=== PATIENT | male | born 1950 | race Caucasian/White ===

== ENCOUNTER 2018-07-25 07:30 | Inpatient (IN) ==
--- NOTE | 2018-07-25 08:18 | Diag Imaging Result Doc PS360 ---
EXAM: CHEST-PORTABLE - 07/25/2018 HISTORY: sepsis TECHNIQUE: Portable chest COMPARISON: 08/03/2016 FINDINGS: Heart size is normal. There are sternal wires from previous surgery again seen. There is tortuosity of the thoracic aorta similar to prior. There is scarring at the left lower lung similar to prior. There is no acute consolidation, pleural effusion, or pneumothorax identified. IMPRESSION: Left lower lung scarring similar to prior. No acute changes. Electronically signed by Mariano Silverio 07/25/2018 8:15 AM
[2018-07-25 08:59] LABS: BASO# 0.01 X1000 (0.0-0.2); BASO% 0.1 % (0.0-0.8); EOS# 0.01 X1000 (0.0-0.7); EOS% 0.1 % (0.0-10.0); HEMATOCRIT 42.5 % (42.0-52.0); HEMOGLOBIN 14.2 g/dL (14.0-18.0); IMM GRAN# 0.06 X1000 (0.0-0.04); IMM GRAN% 0.4 % (0.0-0.5); LYMPH# 0.84 X1000 (1.2-3.4); LYMPH% 6.2 % (20.5-51.1); MCH 32.1 PG (27-31); MCHC 33.4 g/dL (33-37); MCV 96.2 FL (81-99); MONO# 1.06 X1000 (0.11-0.59); MONO% 7.9 % (1.7-9.3); MPV 12.2 FL (7.4-10.4); NEUT# 11.48 X1000 (1.4-6.5); NEUT% 85.3 % (42.2-75.2); PLT 227 X1000 (130-400); RBC 4.42 XMIL (4.7-6.1); WBC 13.46 X1000 (4.8-10.8)
[2018-07-25 09:16] LABS: ESTIMATED GFR > 60
[2018-07-25 09:19] LABS: AGAP 21; ALBUMIN 3.1 g/dL (3.5-5.0); ALKALINE PHOSPHATASE 90 U/L (32-122); BUN 24 mg/dL (8-22); CALCIUM 9.5 mg/dL (8.8-10.2); CHLORIDE 87 mmol/L (98-107); CK PROFILE 235 U/L (24-204); COSMO 278; GLUCOSE 344 mg/dL (70-104); GOT 23 U/L (10-34); GPT 27 U/L (10-44); POTASSIUM 4.2 mmol/L (3.5-5.1); SODIUM 130 mmol/L (136-145); TCO2 22 mmol/L (25-35); TOTAL PROTEIN 6.9 g/dL (6.3-8.3)
[2018-07-25 09:31] LABS: BILIRUBIN URINE NEGATIVE (NEGATIVE); BLOOD URINE 3+ (NEGATIVE); CLARITY CLEAR (CLEAR); COLOR YELLOW; KETONE URINE 3+(Large) mg/dL (NEGATIVE); LEUKOCYTES URINE TRACE (NEGATIVE); NITRITE URINE NEGATIVE (NEGATIVE); PH URINE 6.5; PROTEIN URINE 1+(30 mg/dL) mg/dL (NEGATIVE); UROBILINOGEN URINE NORMAL
[2018-07-25 09:40] LABS: INR 0.94
[2018-07-25 09:41] LABS: PTT 26.9 Seconds (22.3-41.8)
[2018-07-25 09:52] LABS: URINE BACTERIA 2+ /HFP; URINE CAST GRANULAR PRESENT /LPF; URINE EPITHELIAL CELLS <10 /HPF (<10); URINE RBC <10 /HPF (<10); URINE SOURCE CLEAN CATCH
[2018-07-25 09:56] LABS: CK INDEX 2.3 (0.0-2.5); CK-MB 5.38 ng/mL (0.0-5.0)
[2018-07-25 10:16] LABS: LYMPHS 7 % (21-51); MONO 6 % (1-9); SEGS 87 % (42-75)
[2018-07-25 10:40] LABS: HEMOGLOBIN A1C 14.7 % (4.8-6.0)
--- NOTE | 2018-07-25 11:14 | HISTORY AND PHYSICAL ---
PRIMARY CARE PHYSICIAN: None. CHIEF COMPLAINT: Frequent falls due to pain in legs, has had 3 falls in 2 days and a neighbor came to check on him and found him in the floor and called 911. HISTORY OF PRESENTING ILLNESS: This is a 67-year-old male who presents to [facility] ER via EMS after he was found in the floor by his neighbor who then called 911. Patient states that he laid in the floor approximately 5 hours. He has had 3 falls in the past 2 days. States that the pain in his legs keeps him from being able to walk and then he just falls. His workup showed a heart rate on arrival of 139, blood pressure was 113/66. He was saturating 97% on room air. He was disheveled on arrival. He had some stool on the bottom of his feet and he stated he has 3 cats at home. He is noted to have erythema, edema, warmth to touch to his right lower extremity. Per ER record, they did an arterial of bilateral legs with no significant findings. His white blood cell count was 13.46. His sodium level was 130 with a chloride of 87. His cardiac enzymes are pending and an EKG is pending but he will be admitted for further evaluation and treatment. PAST MEDICAL HISTORY: Deep venous thrombosis, coronary artery disease, hypertension, hyperlipidemia, myocardial infarction, chronic obstructive pulmonary disease. PAST SURGICAL HISTORY: Coronary artery bypass graft and heart stent placement. FAMILY HISTORY: Reviewed and noncontributory. SOCIAL HISTORY: He currently lives alone. Drinks alcohol occasionally of 2 drinks. He smokes a pack of cigarettes a day and denies any illicit drug use. ALLERGIES: He has no known drug allergies. HOME MEDICATIONS: A current list will need to be obtained, reviewed and we will restart as appropriate. We will place an order for nursing to update and confirm home medications. LABORATORY DATA: White blood cell count of 13.46, hemoglobin 14.2, hematocrit 42.5, platelets 227,000. PT 13, INR 0.94. Sodium of 130, potassium 4.2, chloride 87, CO2 22, BUN of 24 with a creatinine of 1, glucose 344. Cardiac enzyme is pending but his troponin was negative at 0.010. Plasma lactate of 1.7. Urinalysis with 3+ ketones, 3+ blood, trace of white blood cells, 2+ bacteria. Urine culture is pending. Chest x-ray showed left lower lung scarring similar to prior with no acute changes. Bilateral arterial Doppler per the ER physician verbal report showed no acute findings. REVIEW OF SYSTEMS: He denied any fever, chills, blurred vision, dizziness, chest pain, coughing, shortness of breath. He denied any abdominal pain, constipation, diarrhea, burning or hurting with urination. He was positive for pain to bilateral lower extremities with ambulation and states that is why he has had multiple falls, due to the pain in his legs. PHYSICAL EXAMINATION: VITAL SIGNS: On arrival he had a temperature of 98 degrees, pulse 139, respirations 20, blood pressure 113/66, saturating 97% on room air. GENERAL: This is a 67-year-old male who appears unkept, disheveled, poor hygiene. He is alert and oriented and answers questions appropriately. HEENT: Normocephalic, atraumatic. Normal ENT inspection. Oropharynx and nares are clear. Eyes: Pupils are unequal. He has what appears to be a cataract on his right eye. Extraocular movements are intact NECK: Normal inspection, normal range of motion. LUNGS: Clear to auscultation bilaterally with equal lung expansion and chest wall movement. HEART: With regular rate and rhythm. No murmurs, rubs, or gallops. ABDOMEN: Soft, nontender, nondistended. Bowel sounds are present x4 quadrants. MUSCULOSKELETAL: He has 5/5 strength to upper extremities, 3/5 strength to lower extremities. He is noted to have to his right lower extremity erythema, edema, warmth to touch. Some weeping noted around his ankle area of fluid. NEUROLOGICAL: The cranial nerves 2 through 12 appear grossly intact. ASSESSMENT: 1. Multiple falls. 2. Right lower extremity cellulitis. 3. Leukocytosis. 4. Mild hyponatremia. 5. Hyperglycemia. We are going to check a hemoglobin A1c to determine if he has diabetes or if this is a single episode of hyperglycemia. 6. Possible urinary tract infection. We will await urine culture. PLAN: He is being admitted to the medical unit at [facility], placed on telemetry O2 per protocol, healthy heart diet. We need to update and confirm home medications and then will review them and restart as appropriate. Blood cultures and urine cultures are pending. He is on serial plasma lactate for sepsis protocol. We are obtaining an EKG on his telemetry. It appears he is in sinus tach and we are going to place on clindamycin 600 mg IV q.8 h., normal saline at 125 mL an hour. Again, we are going to check a hemoglobin A1c to verify if he is diabetic and recheck a CBC, BMP in the a.m. He is going to need physical therapy, but we need to treat his cellulitis first. He also is going to need social work nurse for discharge planning. Further orders after being seen by attending. Dictated by NIMO Mai for Boris Nunez MD cc: NIMO Mai MD
[2018-07-25] MEDS ORDERED: TYLENOL PO PRN (12:46)
[2018-07-25] MEDS ORDERED: NS 1,000 ML IV SCH ×2 (12:46→21:00)
[2018-07-25] MEDS ORDERED: ZOFRAN IV PRN (12:46)
[2018-07-25] MEDS: CLINDAMYCIN 600 MG/D5W 600 MG/50 ML IVPB IV SCH ×2 (13:17→21:55)
[2018-07-25] MEDS ORDERED: DUONEB (A & A) INH PRN (20:43)
[2018-07-25] MEDS: HUMULIN R (PARKWAY) SUBQ SCH (21:54)
[2018-07-25] MEDS: BASAGLAR SUBQ SCH (21:54)
[2018-07-25] MEDS: ZEBETA PO SCH (21:55)
[2018-07-26] MEDS: CLINDAMYCIN 600 MG/D5W 600 MG/50 ML IVPB IV SCH ×3 (04:34→21:45)
--- NOTE | 2018-07-26 05:10 | HISTORY AND PHYSICAL ---
HISTORY AND PHYSICAL ADDENDUM: The patient seen and examined by me [id number]. All the laboratory, vital signs, and images were reviewed. Chest x-ray showed left lower lung scarring, with no changes, and basically similar to prior studies. He has been tachycardic, but I believe he did not use his bisoprolol that he uses every day, so I put him back on that. I will decrease a little bit the IV fluids from 125 to 75, because this patient has an ejection fraction of 42%. That ejection fraction was demonstrated in a stress test done in 2016. I do not know how much is the ejection fraction at this time. Probably tomorrow we can stop the fluids. Blood sugar is elevated, and the hemoglobin A1c is extremely high. I have placed this patient on insulin glargine 20 units during the night, but probably we will need more than that. I will continue pattern of blood sugar and sliding scale insulin. This patient has been admitted because of lower extremity cellulitis. He has multiple scratch lesions. He has been placed on antibiotics, clindamycin. Will continue with that treatment for now. As per the patient, he has been taking prednisone for 5 months, every single day, so I will continue with that. Also, we will continue with his bisoprolol, breathing treatment, prasugrel, and aspirin, p.r.n. breathing treatment. This patient has a past medical history of COPD, coronary artery disease with CABG, blood clots, hyperlipidemia, hypertension. I agree with the rest of the assessment and plan. I agree with the rest of the nurse practitioner's assessment and plan. cc: Boris Nunez MD
[2018-07-26] MEDS: HUMULIN R (PARKWAY) SUBQ SCH ×4 (06:35→22:10)
[2018-07-26 08:09] LABS: BASO# 0.01 X1000 (0.0-0.2); BASO% 0.1 % (0.0-0.8); EOS# 0.08 X1000 (0.0-0.7); HEMATOCRIT 35.5 % (42.0-52.0); HEMOGLOBIN 11.6 g/dL (14.0-18.0); IMM GRAN# 0.03 X1000 (0.0-0.04); IMM GRAN% 0.4 % (0.0-0.5); LYMPH# 1.27 X1000 (1.2-3.4); LYMPH% 16.2 % (20.5-51.1); MCH 31.7 PG (27-31); MCHC 32.7 g/dL (33-37); MONO# 0.83 X1000 (0.11-0.59); MONO% 10.6 % (1.7-9.3); MPV 12.1 FL (7.4-10.4); NEUT# 5.61 X1000 (1.4-6.5); NEUT% 71.7 % (42.2-75.2); PLT 186 X1000 (130-400); RBC 3.66 XMIL (4.7-6.1); RDW 13.1 % (11.5-14.5); WBC 7.83 X1000 (4.8-10.8)
[2018-07-26 08:28] LABS: AGAP 12; BUN 17 mg/dL (8-22); CALCIUM 8.4 mg/dL (8.8-10.2); CHLORIDE 96 mmol/L (98-107); COSMO 271; CREATININE 0.7 mg/dL (0.7-1.2); ESTIMATED GFR > 60; GLUCOSE 128 mg/dL (70-104); POTASSIUM 3.7 mmol/L (3.5-5.1); SODIUM 134 mmol/L (136-145); TCO2 26 mmol/L (25-35)
[2018-07-26] MEDS: BREO ELLIPTA 200/25 MCG INH INH SCH (08:36)
[2018-07-26] MEDS: ASPIRIN PO SCH (10:02)
[2018-07-26] MEDS: THERA M PLUS PO SCH (10:03)
[2018-07-26] MEDS: EFFIENT PO SCH (10:03)
[2018-07-26] MEDS: PREDNISONE PO SCH (10:03)
--- NOTE | 2018-07-26 14:22 | PROGRESS NOTE ---
DATE: 07/26/2018 SUBJECTIVE: This patient is feeling better compared with yesterday, he still has severe redness bilaterally but the swelling is going down, I will continue with the same management because I believe is working, kidney function is stabilized. Hemoglobin A1c 14.7 and blood glucose is better compared with yesterday. For now will continue with the same management and I will adjust the medications accordingly. WBC improved. OBJECTIVE: Vital Signs: Temperature 98.2 degrees, pulse 84, respiratory 16, blood pressure 95/53, oxygen saturation 98 on room air. HEENT: Head normocephalic, no trauma. PERRLA. Neck: Supple. No JVD. No masses. Central trachea. Chest: Clear to auscultation. No wheezing. No rales. Abdomen: Soft, nontender, nondistended. No hepatosplenomegaly. Extremities: 3+ lower extremity edema bilaterally with bilateral lower extremity redness, scratch lesions as well. Neurological: The patient is alert and oriented x3. No focal deficits. LABORATORY: WBC 7.8, hemoglobin 11.6, hematocrit 35.5, platelets 186,000, sodium 134, potassium 3.7, chloride 96, bicarbonate 26, BUN 17, creatinine 0.7, glucose 128, calcium 8.4. ASSESSMENT AND PLAN: 1. Bilateral lower extremity cellulitis mostly on the right side, will continue with antibiotics. It looks like he is getting better, is less swollen but still is really red, will continue with the same treatment. 2. Multiple falls probably secondary to lower extremity swelling and possible peripheral neuropathy. His hemoglobin A1c is 14.7 but he has been 5 months using steroids, as per the patient he has been using 20 mg of prednisone daily and I have decreased that dose to 10. 3. Leukocytosis resolved. 4. Mild hyponatremia better. 5. Hyperglycemia. Hemoglobin A1c 14.7 so probably this patient has diabetes but he has been getting steroids for the past 5 months due to his chronic obstructive pulmonary disease, I have started this patient on long-acting insulin and his blood sugar seems to be better, I will continue with the same management and I will monitor this patient closely. 6. Possible urinary tract infection, we will wait for the urine culture. He is on antibiotics as well. 7. Chronic obstructive pulmonary disease not in exacerbation. Continue with the same management and breathing treatment, p.r.n. breathing treatment as needed as well. 8. History of coronary artery disease status post coronary artery bypass graft, aware. No chest pain at this moment. 9. Hypertension stable. Continue with same management. 10. Hyperlipidemia. Continue with pravastatin. 11. Mild constipation. Continue with MiraLAX. cc: Boris Nunez MD
[2018-07-26] MEDS ORDERED: PRAVACHOL PO SCH (21:00)
[2018-07-26] MEDS: ZEBETA PO SCH (21:50)
[2018-07-26] MEDS: BASAGLAR SUBQ SCH (22:10)
[2018-07-27] MEDS: CLINDAMYCIN 600 MG/D5W 600 MG/50 ML IVPB IV SCH (04:41)
[2018-07-27 06:35] LABS: BASO# 0.01 X1000 (0.0-0.2); BASO% 0.2 % (0.0-0.8); EOS# 0.05 X1000 (0.0-0.7); EOS% 0.8 % (0.0-10.0); HEMATOCRIT 34.3 % (42.0-52.0); IMM GRAN# 0.06 X1000 (0.0-0.04); IMM GRAN% 0.9 % (0.0-0.5); LYMPH% 20.3 % (20.5-51.1); MCH 31.2 PG (27-31); MCHC 32.1 g/dL (33-37); MCV 97.2 FL (81-99); MONO# 0.71 X1000 (0.11-0.59); MONO% 11.1 % (1.7-9.3); MPV 11.9 FL (7.4-10.4); NEUT# 4.28 X1000 (1.4-6.5); NEUT% 66.7 % (42.2-75.2); PLT 217 X1000 (130-400); RBC 3.53 XMIL (4.7-6.1); RDW 12.9 % (11.5-14.5); WBC 6.41 X1000 (4.8-10.8)
[2018-07-27] MEDS: HUMULIN R (PARKWAY) SUBQ SCH ×4 (06:41→20:39)
[2018-07-27 06:50] LABS: AGAP 10; ALBUMIN 2.5 g/dL (3.5-5.0); ALKALINE PHOSPHATASE 72 U/L (32-122); BUN 19 mg/dL (8-22); CALCIUM 8.5 mg/dL (8.8-10.2); CHLORIDE 97 mmol/L (98-107); COSMO 276; CREATININE 0.7 mg/dL (0.7-1.2); ESTIMATED GFR > 60; GLUCOSE 239 mg/dL (70-104); GOT 22 U/L (10-34); GPT 30 U/L (10-44); POTASSIUM 3.9 mmol/L (3.5-5.1); SODIUM 133 mmol/L (136-145); TCO2 26 mmol/L (25-35); TOTAL PROTEIN 5.3 g/dL (6.3-8.3)
[2018-07-27] MEDS: BREO ELLIPTA 200/25 MCG INH INH SCH (07:44)
[2018-07-27] MEDS: LEVAQUIN 750 MG/D5W 750 MG/150 ML IVPB IV SCH (10:08)
[2018-07-27] MEDS: MIRALAX PO SCH (10:09)
[2018-07-27] MEDS: ASPIRIN PO SCH (10:09)
[2018-07-27] MEDS: EFFIENT PO SCH (10:09)
[2018-07-27] MEDS: PREDNISONE PO SCH (10:09)
[2018-07-27] MEDS: THERA M PLUS PO SCH (10:09)
[2018-07-27] MEDS ORDERED: NS 500 ML IV ONE (12:20)
[2018-07-27] MEDS ORDERED: VANCOMYCIN IV PER PHARMACY MISC SCH (12:30)
--- NOTE | 2018-07-27 12:56 | PROGRESS NOTE ---
DATE: 07/27/2018 SUBJECTIVE: The patient has no complaints. He is very complimentary of the staff and everyone about him. He feels like he is being treated like a [place]. He enjoys the food and being taking care of. The diagnosis of diabetes is new to him. I definitely think it was accelerated by the prednisone, but I do not think it is only dependent on the prednisone. I think he does have type 2 diabetes. In any case, he seems pretty well. OBJECTIVE: Vital signs: His blood pressure is 105/62, heart rate of 81, respiratory rate 18, temperature 97.4 degrees, 97% on room air. Cardiovascular: Regular rate and rhythm. Pulmonary: Bilateral breath sounds. Clear to auscultation. GI: Soft, nontender, nondistended. Bowel sounds are positive. LABORATORY: Sodium is 133, glucose is 325. He kind of hovers since yesterday at 414, 256, 325. PROBLEM LIST: 1. Lower extremity cellulitis. He is on antibiotics in the form of Levaquin. I think he may need some staph coverage. Kidney function is intact. So I am going to just give him some vancomycin. 1. New onset diabetes. He is on Lantus, but I am going to add metformin. It may take a while to get this under good control. 2. Chronic obstructive pulmonary disease. I think that appears to be pretty well. He is at baseline and continue his breathing treatments. He is on low-dose steroids. 3. Coronary artery disease appears to be compensated. He is on bisoprolol, Effient and Pravachol, which I am going to switch him to Lipitor. I do not feel like Pravachol is sufficient enough. We will check his lipids, but since he has CAD, we really need to keep an eye on that. DISPOSITION: I think he is probably close to going home. However, he has not been out of bed, so we need to work on getting him up and about. I think he needs a dietitian consult, some diabetes education. He is going to go home on insulin. We also need to educate him on injections and checking his sugars. So, hopefully home in the next 24 hours if he is stable. cc: Yohannes Mills MD
[2018-07-27] MEDS ORDERED: VANCOMYCIN 2,000 MG in NS 500 ML IV ONE (14:00)
[2018-07-27] MEDS: GLUCOPHAGE PO SCH (16:23)
--- NOTE | 2018-07-27 19:47 | ECHO REPORT ---
ORDER DATE: 07/25/2018 ECHOCARDIOGRAM: INDICATION: CHF. FINDINGS: 1. The right atrium appears normal in size. 2. Mild tricuspid regurgitation. Insufficient data to estimate RV systolic pressure. 3. Normal RV size and systolic function. 4. Trace pulmonic insufficiency. 5. Normal left atrial size. 6. No mitral valve prolapse. Mild mitral regurgitation. 7. The left ventricle is upper limits of normal size at 5.6 cm. Normal wall thicknesses with a posterior and interventricular septal wall thickness of 1.0 cm each. There is a reduced ejection fraction estimated at 40% with global hypokinesis. This is a somewhat difficult study. The patient was noted to have an ejection fraction of 42% on nuclear scanning in 2016. 8. Aortic valve opens well, although it does appear sclerotic. It does not appear stenotic. There is no insufficiency. 9. Aorta appears normal in visualized segments. 10. No pericardial effusion seen. cc: MD Boris Christine MD
[2018-07-27] MEDS ORDERED: INSULIN PEN NEEDLES ONE (20:39)
[2018-07-27] MEDS: BASAGLAR SUBQ SCH (20:39)
[2018-07-27] MEDS: ZEBETA PO SCH (20:40)
[2018-07-27] MEDS ORDERED: LIPITOR PO SCH (21:00)
[2018-07-28] MEDS ORDERED: VANCOMYCIN 1,500 MG in NS 250 ML IV SCH (04:00)
[2018-07-28] MEDS: HUMULIN R (PARKWAY) SUBQ SCH ×2 (06:04→12:22)
[2018-07-28 07:53] LABS: AGAP 8; BUN 16 mg/dL (8-22); CALCIUM 8.7 mg/dL (8.8-10.2); CHLORIDE 103 mmol/L (98-107); COSMO 278; CREATININE 0.6 mg/dL (0.7-1.2); ESTIMATED GFR > 60; GLUCOSE 178 mg/dL (70-104); POTASSIUM 3.9 mmol/L (3.5-5.1); SODIUM 136 mmol/L (136-145); TCO2 25 mmol/L (25-35)
[2018-07-28 08:04] LABS: BASO# 0.03 X1000 (0.0-0.2); BASO% 0.5 % (0.0-0.8); EOS# 0.06 X1000 (0.0-0.7); EOS% 0.9 % (0.0-10.0); HEMATOCRIT 33.3 % (42.0-52.0); HEMOGLOBIN 10.7 g/dL (14.0-18.0); IMM GRAN# 0.13 X1000 (0.0-0.04); LYMPH# 1.61 X1000 (1.2-3.4); LYMPH% 24.9 % (20.5-51.1); MCH 31.5 PG (27-31); MCHC 32.1 g/dL (33-37); MCV 97.9 FL (81-99); MONO# 0.67 X1000 (0.11-0.59); MONO% 10.4 % (1.7-9.3); MPV 11.6 FL (7.4-10.4); NEUT# 3.96 X1000 (1.4-6.5); NEUT% 61.3 % (42.2-75.2); PLT 240 X1000 (130-400); RDW 12.9 % (11.5-14.5); WBC 6.46 X1000 (4.8-10.8)
[2018-07-28] MEDS: BREO ELLIPTA 200/25 MCG INH INH SCH (08:05)
[2018-07-28 10:12] LABS: ANISOCYTOSIS 1+; EOS 1 % (1-10); LYMPHS 19 % (21-51); MONO 12 % (1-9); SEGS 68 % (42-75)
[2018-07-28] MEDS: LEVAQUIN 750 MG/D5W 750 MG/150 ML IVPB IV SCH (10:14)
[2018-07-28] MEDS: PREDNISONE PO SCH (10:18)
[2018-07-28] MEDS: ASPIRIN PO SCH (10:18)
[2018-07-28] MEDS: PRINIVIL PO SCH ×2 (10:18→10:20)
[2018-07-28] MEDS: THERA M PLUS PO SCH (10:18)
[2018-07-28] MEDS: MIRALAX PO SCH (10:18)
[2018-07-28] MEDS: GLUCOPHAGE PO SCH (10:19)
[2018-07-28] MEDS: EFFIENT PO SCH (10:19)
[2018-07-28 12:23] VITALS: BP 99/60
--- NOTE | 2018-07-28 13:50 | EKG Report ---
Test Performed on : 07/25/2018 11:11:43 AM Test Reason : tachycardia Blood Pressure : / mmHG Vent. Rate : 124 BPM Atrial Rate : 124 BPM P-R Int : 134 ms QRS Dur : 092 ms QT Int : 326 ms P-R-T Axes : 055 071 182 degrees QTc Int : 468 ms Sinus tachycardia. Possible Left atrial enlargement ST elevation, consider inferior injury or acute infarct ACUTE WI / STEMI Consider right ventricular involvement in acute inferior infarct Abnormal ECG When compared with ECG of 25-JUL-2018 11:09, (Unconfirmed) premature ventricular complexes. are no longer present ST more elevated in Inferior leads Unconfirmed Result
--- NOTE | 2018-07-29 04:44 | DISCHARGE SUMMARY ---
ADMISSION DATE: 07/25/2018 DISCHARGE DATE: 07/28/2018 DISCHARGE DIAGNOSES: 1. Bilateral lower extremity cellulitis. 2. Multiple falls. 3. Leukocytosis secondary to #1. 4. Type 2 diabetes mellitus. 5. Chronic obstructive pulmonary disease. 6. Coronary artery disease. 7. Dyslipidemia. HOSPITAL COURSE: Mr. Pleitez is a 67-year-old, gentleman who presented to the [facility] emergency department via the EMS after he was found on the floor by his neighbor who called 911. According to the patient, he was lying there on the floor for approximately 5 hours prior to the arrival of EMS. He reported multiple falls to the previous days. He was found to have bilateral leg cellulitis and, therefore, he was treated with IV antibiotics including vancomycin and levofloxacin. His wound culture grew Serratia species that is sensitive to levofloxacin. He received regular insulin as per protocol for his diabetes and was continued on his routine home medications for coronary artery disease, COPD, and dyslipidemia. His condition has improved and therefore, we are going to let him go home today. DISCHARGE MEDICATIONS: 1. Levofloxacin 500 mg orally once daily for 10 days. 2. Aspirin 81 mg orally once daily. 3. Effient 10 mg orally once daily. 4. Pravastatin 80 mg orally once daily at bedtime. 5. Bisoprolol 5 mg orally once daily at bedtime. 6. Lisinopril 5 mg orally once daily. 7. Albuterol and Atrovent nebulization treatments as needed. 8. Ventolin HFA 2 puffs q.4 hours as needed for shortness of breath and wheezing. 9. Metformin 500 mg orally twice daily. 10. Breo Ellipta inhaler 200/25 one inhalation once daily. 11. Prednisone 10 mg orally once daily. 12. MiraLAX 17 g orally once daily. FOLLOWUP: He will follow up with his PCP in approximately 1 week. CONDITION: Stable DISPOSITION: Home. cc: Camilla Garcia MD
--- NOTE | 2018-07-31 11:36 | VASCULAR LAB ---
PROCEDURE NAME: Arterial Bilateral Legs - 07/25/2018 REFERRING PHYSICIAN: Dr. Ramon Parr. MEDIA INTERN: OSVALDO. INDICATIONS: The patient has had coronary artery bypass grafting, high blood pressure, smoker. She has lower extremity ulcers and gupta loss of pulse on the left. Pulse waveform recordings were done only on the right leg due to a history of a DVT and a current open wound involving the lower calf and ankle, on the right. The left leg is the one with coldness and is the concerned leg. FINDINGS: This is a very limited lower extremity arterial study. She had pulse waveforms involving the right thigh and the right calf which appeared to be diminished but they were present. On the left, her brachial artery blood pressure was 126 mmHg. Left thigh was 155 mmHg. Left calf was 135 mmHg left ankle is 121 mmHg. Again, the pulse waveforms were diminished involving her left calf and left ankle. They were barely visible involving her left toe; however, at rest, the ankle-brachial index was 0.96. INTERPRETATION: She does have bilateral lower extremity peripheral vascular disease with decreased waveforms. No pressures were taken on the right lower extremity. Pressure is on the left lower extremity are assumed to be falsely elevated because of noncompliant arteries in the left lower extremity. Because of the pulse waveforms, left lower extremity is diminished. cc: MD Ramon Diaz MD
--- NOTE | 2018-08-01 10:04 | PROVIDER DOCUMENTATION ---
This chart was entered by Latisha Sndyer Scribe, acting as scribe for Ramon Parr MD. HPI-General Adult - General Chief Complaint: Fall Stated Complaint: FALL Time Seen by Provider: 07/25/18 08:02 Source: patient, EMS Allergies/Adverse Reactions: Patient Allergies Allergy/AdvReac Type Severity Reaction Status Date / Time No Known Allergies Allergy Verified 08/03/16 06:07 Home Medications: Home Medication List Medication Instructions Recorded Confirmed Last Taken Type Aspirin 0.5 tab PO DAILY 04/24/16 07/25/18 05/18/18 04:00 History Bisoprolol [Zebeta] 5 mg PO HS 04/24/16 07/25/18 05/18/18 04:00 History Lisinopril 5 mg PO DAILY 04/24/16 07/25/18 05/18/18 04:00 History Multivitamins/Minerals [Centrum 1 tab PO DAILY 04/24/16 07/25/18 05/18/18 04:00 History Tablet] Pravastatin Sodium 80 mg PO HS 04/24/16 07/25/18 05/18/18 04:00 History Albuterol 2.5MG/Ipratrop 0.5MG 3 ml INH Q6H PRN PRN #120 neb 05/14/16 07/25/18 Unknown Rx [Duoneb (A & A)] Nebulizer Accessories [Nebulizer] 1 each MC DAILY PRN #1 kit 05/14/16 07/25/18 Unknown Rx Albuterol Sulfate Inhaler 2 puff INH Q6H PRN PRN #1 inhaler 06/27/16 07/25/18 Unknown Rx [Ventolin Hfa] Prasugrel [Effient] 10 mg PO DAILY 06/27/16 07/25/18 05/18/18 04:00 History Prednisone 10 mg PO DAILY #10 tablet 08/03/16 07/25/18 05/18/18 04:00 Rx Polyethylene Glycol 3350 [Miralax] 17 gm PO DAILY #90 powd.pack 05/19/18 Unknown Rx Fluticasone/Vilant 200/25 INH 1 puff INH RTDAILY inhaler 07/28/18 Unknown Rx [Breo Ellipta 200/25 Mcg INH] Levofloxacin 500 mg PO DAILY #10 tab 07/28/18 Unknown Rx Metformin [Glucophage] 500 mg PO BID #60 tab 07/28/18 Unknown Rx - History of Present Illness -Gen Adult Nature of Presenting Problems: 67 yowm presents to the ed with c/o BLE pain weakness and unable to walk due to pain. pt has cellulites to BLE and lives alone. pt sts he falls frequently due to pain in legs. pt is unkempt in appearance and has what appears to be fecal matter on bottom of feet. pt sts he has 3 cats at home. pt denies LOC with fall and sts laid in the floor overnight till a neighbor came by and called 911. pt had urinated himself Location of Pain/Injury: reports: lower extremity Pain Radiation: reports: no radiation Quality of Pain: reports: aching, burning Severity: reports: moderate Onset/Duration: reports: other (2 weeks) Timing: reports: still present, constant Context/Activities at Onset: reports: light activity Modifying Factors: improves with: nothing. worse with: movement, palpation Associated Symptoms: reports: constipation, weakness (BLE), trouble walking. denies: back/neck pain, chest pain, cough, diarrhea, dizziness, fatigue, headaches, loss of appetite, malaise, nausea, shortness of breath, syncope, vomiting Similar Symptoms Previously?: Yes Recently seen or treated by another doctor?: No Review of Systems - Adult - REVIEW OF SYSTEMS - ADULT Constitutional: denies: chills, fever, fatique Eyes: reports: no symptoms reported Ears, Nose, Mouth & Throat: reports: no symptoms reported Cardiovascular: denies: chest pain, palpitations Respiratory: denies: cough, shortness of breath, wheezing Gastrointestinal: denies: abdominal pain, diarrhea, nausea, vomiting Genitourinary: reports: no symptoms reported Musculoskeletal: reports: see HPI, muscle weakness (BLE), other (BLE). denies: back pain, neck pain Integumentary: reports: no symptoms reported Neurological: denies: dizziness/vertigo, headache/migraines, numbness, paresthesia, seizure, slurred speech, syncope, tremors Psychiatric: reports: no symptoms reported Endocrine: reports: no symptoms reported Hematologic/Lymphatic: reports: no symptoms reported Allergic/Immunologic: reports: no symptoms reported All Other Systems: Reviewed and Negative Past History - Adult - PAST MEDICAL HISTORY-ADULT Review of Records: reports: Old Records Reviewed, Nursing Assessment Review, Medications Reviewed, Social history reviewed & non-contributory. Major Childhood Illnesses: reports: denies history Cardiovascular: reports: blood clots, CAD, HTN, hyperlipidemia, HI. denies: pacemaker, PVD Respiratory: reports: asthma, COPD Gastrointestinal: reports: denies history Genitourinary: reports: denies history Musculoskeletal: reports: denies history Neurological: reports: denies history Psychiatric: reports: denies history Endocrine/Immune: reports: denies history Other Conditions: reports: deaf/hard of hearing, skin disorder - PRIOR SURGERIES/PROCEDURES Surgical/Procedure History: reports: cardiac stent, other (bypass) - IMMUNIZATION STATUS Childhood Immunizations: See Nurse Assessment Flu Vaccine: See Nurse Assessment - FAMILY HISTORY Family History: reviewed, not pertinent - SOCIAL HISTORY Smoking: cigarettes, greater than 1 pack/day Provider spent 3-5 mins advising pt. on dangers of tobacco.: Discussed manners to quit use, and f/u contacts for add'l counseling. Substance Use: alcohol Alcohol Use Frequency: occasionally Number of drinks per typical drinking period:: 2 drinks Living Situation: alone Physical Exam-General - PHYSICAL EXAM-ADULT Initial Vital Signs Reviewed: Yes - CONSTITUTIONAL General Appearance: alert, mild distress, other (UNKEMPT/NOTED bp 98/69) - EYES Eyes: PERRL/EOMI, pale conjunctivae - HEAD, EARS, NOSE, MOUTH & THROAT HENMT: dental decay. negative: moist mucous membranes - NECK Neck: normal inspection - RESPIRATORY Respiratory: chest non-tender, decreased breath sounds - CARDIOVASCULAR Cardiovascular: normal peripheral pulses, tachycardia (139) - CHEST (BREASTS) Chest/Breast: other (CABG SCAR) - GASTROINTESTINAL (ABDOMEN) Abdominal Exam: normal bowel sounds, non tender, soft - GENITOURINARY Male Genitalia: deferred Rectal Exam: deferred Hemoccult Exam: deferred - LYMPHATIC Lymphatic: no adenopathy - MUSCULOSKELETAL Back Exam: normal inspection Extremity: normal capillary refill, pelvis stable, erythema (BLE with weeping R> L), swelling (BLE), tenderness (BLE) - SKIN Integumentary: normal color (generalized uother then BLE), warm/dry, erythema ( BLE), swelling (BLE), tenderness (BLE), warm (BLE) - NEUROLOGIC Neurologic: grossly normal, no motor/sensory deficits - PSYCHIATRIC Psych/Mental Status: normal mood/affect, normal thought content, normal thought process, oriented x 3 Progress - PLAN OF CARE/RESULTS Progress/Plan/Lab Results: Vital Signs - 8 hr 07/25/18 07:38 07/25/18 08:30 Temperature 98 F Pulse Rate 139 H 124 H Respiratory Rate 20 22 Blood Pressure 113/66 100/72 O2 Sat by Pulse Oximetry 97 96 Laboratory Results - last 24 hr 07/25/18 07/25/18 07/25/18 08:30 08:30 08:30 WBC 13.46 H RBC 4.42 L Hgb 14.2 Hct 42.5 MCV 96.2 MCH 32.1 H MCHC 33.4 RDW Std Deviation 13.0 Plt Count 227 MPV 12.2 H Immature Gran % (Auto) 0.4 Neut % (Auto) 85.3 H Lymph % (Auto) 6.2 L [place] % (Auto) 7.9 Eos % (Auto) 0.1 Baso % (Auto) 0.1 Immature Gran # (Auto) 0.06 H Neut # (Auto) 11.48 H Lymph # (Auto) 0.84 L [place] # (Auto) 1.06 H Eos # (Auto) 0.01 Baso # (Auto) 0.01 Sodium 130 L Potassium 4.2 Chloride 87 L Carbon Dioxide 22 L Anion Gap 21 BUN 24 H Creatinine 1.0 Estimated GFR/1.73 m2 > 60 BUN/Creatinine Ratio 24 Glucose 344 H Calculated Osmolality 278 Calcium 9.5 Total Bilirubin 0.60 AST 23 ALT 27 Alkaline Phosphatase 90 Creatine Kinase 235 H Troponin T < 0.010 Total Protein 6.9 Albumin 3.1 L Globulin 4.0 Albumin/Globulin Ratio 1.0 Plasma Lactate 07/25/18 08:30 WBC RBC Hgb Hct MCV MCH MCHC RDW Std Deviation Plt Count MPV Immature Gran % (Auto) Neut % (Auto) Lymph % (Auto) [place] % (Auto) Eos % (Auto) Baso % (Auto) Immature Gran # (Auto) Neut # (Auto) Lymph # (Auto) [place] # (Auto) Eos # (Auto) Baso # (Auto) Sodium Potassium Chloride Carbon Dioxide Anion Gap BUN Creatinine Estimated GFR/1.73 m2 BUN/Creatinine Ratio Glucose Calculated Osmolality Calcium Total Bilirubin AST ALT Alkaline Phosphatase Creatine Kinase Troponin T Total Protein Albumin Globulin Albumin/Globulin Ratio Plasma Lactate 1.7 Orders Category Date Time Status Cardiac Monitoring DIRECTED Care 07/25/18 07:45 Active IV Insertion ORDERED Care 07/25/18 07:45 Completed Notify MD of + Sepsis Screen NOW Care 07/25/18 07:45 Active Notify Physician As Ordered Care 07/25/18 07:45 Active CHEST-PORTABLE [RAD] Stat Exams 07/25/18 07:45 Completed BLOOD CULTURE [BLDCUL] Stat Lab 07/25/18 08:29 Ordered CBC WITH DIFF [HEME] Stat Lab 07/25/18 08:30 Results CK PROFILE [SP CHEM] Stat Lab 07/25/18 08:30 Results COMPREHENSIVE METABOLIC PANEL [CHEM] Stat Lab 07/25/18 08:30 Results LACTATE, PLASMA [CHEM] Lab 07/25/18 10:45 Uncollected LACTATE, PLASMA [CHEM] Lab 07/25/18 13:45 Uncollected LACTATE, PLASMA [CHEM] Q3H Lab 07/25/18 08:30 Completed PROTIME WITH INR [COAG] Stat Lab 07/25/18 08:30 Received PTT [COAG] Stat Lab 07/25/18 08:30 Received ROUTINE CULTURE [RM] Stat Lab 07/25/18 07:45 Uncollected TROPONIN T Stat Lab 07/25/18 08:[address] W/POSS RFLX CULT [URINALYSIS] Stat Lab 07/25/18 09:21 Ordered Oxygen Device Stat Oth 07/25/18 07:45 Active Arterial Bilateral Legs Stat Ther 07/25/18 08:26 Ordered Result Diagrams: 07/28/18 06:34 07/28/18 06:34 - REASSESSMENT Reassessment #1 Time Reassessed: 08:45 (pt was given x6 apple juice, warm blankets and dr parr is at bedside) Status: improving Reassessment Comment: pt is thirsty and c/o being cold with leg pain Reassessment #2 Time Reassessed: 09:40 (pt has no complaint of chest pain) Status: unchanged Reassessment Comment: pt is in bed resting - EKG 1 Time of EKG reading by physician:: 11:11 EKG Read and Signed by:: Ramon Parr EKG Interpretation (*Must complete 3 of following elements*): Abnormal Rate: 124 Rhythm: sinus tachycardia QRS: other (posible left atrial enlargement) Comments: NSSTT changes/no HI STEMI per dr parr - XRAY 1 XRAY: Bilateral XRAY Study: Chest (EXAM: CHEST-PORTABLE - 07/25/2018 HISTORY: sepsis TECHNIQUE: Portable chest COMPARISON: 08/03/2016 FINDINGS: Heart size is normal. There are sternal wires from previous surgery again seen. There is tortuosity of the thoracic aorta similar to prior. There is scarring at the left lower lung similar to prior. There is no acute consolidation, pleural effusion, or pneumothorax identified. IMPRESSION: Left lower lung scarring similar to prior. No acute changes. Electronically signed by Mariano Silverio 07/25/2018 8:15 AM 07/25/18814 Interpreting Physician: Mariano Silverio MD Dictated Date/Time: 07/25/18813 cc: Ramon Parr MD;) - CONSULTS/PCP/HOSPITALIST Notification #1 *Consult/PCP/Hospitalist*: hospitalist dr myers Time Discussed: 09:39 Consult Disposition: Will see in ED, Admit Departure - Departure Date of Disposition Decision: 07/25/18 Time of Disposition Decision: 09:39 DIAGNOSIS: Tobacco use disorder, Tachycardia, Hypotensive episode Cellulitis of lower extremity Qualifiers: Laterality: unspecified laterality Qualified Code(s): L03.119 - Cellulitis of unspecified part of limb Pneumonia Qualifiers: Pneumonia type: due to unspecified organism Laterality: unspecified laterality Lung location: unspecified part of lung Qualified Code(s): J18.9 - Pneumonia, unspecified organism Disposition: ADMITTED INPATIENT 09 Certified Medical Emergency: Emergent Condition: Stable - Critical Care Note This patient required my direct & personal management of CC.: Yes Total Time (mins): 39 Critical Care Statement: This patient required my direct personal management to treat or rule out processes, the absence of which, could potentiallly result in sudden, clinically significant life or limb threatening deterioration. Attestation - Physician/ MICHELLE Attestation Patient care was provided by Advanced Practice Provider:: No The physician spent face to face time with patient:: Yes Advanced Practice Provider documentation review:: Supervising physician onsite and consulted in the evaluation and care of this patient. The physician did have a face to face encounter with the patient. This chart was documented by the indicated scribe, (Latisha Snyder Scribe) and accurately reflects the services I performed and decisions made by me, Ramon Parr MD, as attested by the provider's signature.
== END 2018-07-28 13:40 | disposition home or self-care (01) | DRG 603 ==
LOC: P.ED 07:30 → P.MEDSURG 12:17 → SUATTDRO 12:17
PROVIDERS: ATTEND Internal Medicine
CPT/HCPCS: 71010; 71045; 80048; 80053; 81001; 82550; 82553; 82948; 83036; 83605; 84484; 85025; 85610; 85730; 87040; 87070; 87077; 87088; 87186; 93005; 93306; 93923; 94640; 94761; 99285; A9270; J1815; J1956; J3370; J7030; J7040; J7050; J7506; J7512; XXXXX